=== PATIENT | female | born 1950 | race Two or more races ===

== ENCOUNTER 2023-12-22 18:56 | Emergency (ER) | payer MEDICAID ==
[~2023-12-22] VITALS: Ht 165.1 cm; Wt 59.1 kg
[2023-12-22 18:58] VITALS: TEMP 98.8
[2023-12-22 20:25] LABS: BASOPHILS % (AUTO) 0.4 % (0.0-2.0); EOSINOPHILS % (AUTO) 2.9 % (1.0-6.0); HEMATOCRIT 47.5 % (36-46); HEMOGLOBIN 15.9 g/dL (12.0-16.0); LYMPHOCYTES # (AUTO) 1.7 K/uL (1.0-4.8); LYMPHOCYTES % (AUTO) 23.1 % (22.0-44.0); MEAN CORPUSCULAR HEMOGLOBIN 28.6 pg (26.0-34.0); MEAN CORPUSCULAR HGB CONC 33.6 G/dL (31.0-37.0); MEAN CORPUSCULAR VOLUME 85 fL (80-100); MONOCYTES # (AUTO) 0.7 K/uL (0.1-1.0); MONOCYTES % (AUTO) 9.2 % (2.0-9.0); NEUTROPHILS # (AUTO) 4.8 K/uL (1.8-7.7); NEUTROPHILS % (AUTO) 64.4 % (40.0-70.0); PLATELET COUNT (AUTO) 259 K/uL (150-450); RED BLOOD CELL COUNT(AUTO) 5.58 MIL/uL (4.00-5.20); RED CELL DISTRIBUTION WIDTH 13.2 % (11.5-14.5); WHITE BLOOD COUNT (AUTO) 7.4 K/uL (4.5-11.0)
[2023-12-22 20:33] LABS: CREATININE 1.04 mg/dL (0.60-1.30); POTASSIUM 3.7 mmol/L (3.5-5.1)
[2023-12-22 20:40] LABS: ALBUMIN 3.4 g/dL (3.4-5.0); BILIRUBIN,TOTAL 0.3 mg/dL (0.1-1.0)
[2023-12-22 20:41] LABS: TROPONIN I-HIGH SENSITIVITY 6 ng/L (<51)
[2023-12-22] MEDS: ACETAMINOPHEN 500 MG TABLET PO ONE (20:44)
[2023-12-22] MEDS: LIDOCAINE 5% TRANSDERMAL PATCH TD ONE (20:45)
[2023-12-22] MEDS: MORPHINE SULFATE 2 MG/ML SYRINGE IVP ONE (20:46)
[2023-12-22] MEDS: HydrALAZINE HCL 20 MG/ML VIAL IVP ONE (20:47)
[2023-12-22 21:24] VITALS: BP 174/74; PULSE 85; RESP 16
[2023-12-22] MEDS ORDERED: LIDO700A15 TP (21:41)
[2023-12-22] MEDS ORDERED: ACET-2247 PO (21:41)
== END 2023-12-22 22:36 | disposition home or self-care (01) ==
LOC: EMS 18:57
DX: T14.8XXA Other injury of unspecified body region, initial encounter (principal); E11.9 Type 2 diabetes mellitus without complications; X58.XXXA Exposure to other specified factors, initial encounter; Y93.89 Activity, other specified; Y92.89 Other specified places as the place of occurrence of the external cause; Y99.8 Other external cause status
CPT/HCPCS: 99285; 96374; 71045; 96375; 80053; 82550; 83880; 84484; 85025; 36415; 71100; 93005; G0238; J0360; J2270

== ENCOUNTER 2024-01-25 17:22 | Emergency (ER) | payer MEDICAID ==
[~2024-01-25] VITALS: Ht 157.5 cm; Wt 63.6 kg
[~2024-01-25 17:22] MED LIST: ACET-2247 PO; LIDO700A15 TP
[2024-01-25 17:47] VITALS: TEMP 98.4
[2024-01-25] MEDS ORDERED: LOSA100T59 PO (18:58)
[2024-01-25] MEDS: BACITRACIN 0.9 GM PACKET OINTMENT TP ONE (19:16)
[2024-01-25] MEDS: CEPHALEXIN MONOHYDRATE 500 MG CAPSULE PO ONE (19:16)
[2024-01-25] MEDS ORDERED: CEPH-558 PO (19:31)
[2024-01-25 19:55] VITALS: BP 161/79; PULSE 75; RESP 18
== END 2024-01-25 20:15 | disposition home or self-care (01) ==
LOC: EMS 17:24
DX: L03.011 Cellulitis of right finger (principal); E11.9 Type 2 diabetes mellitus without complications; I10 Essential (primary) hypertension
CPT/HCPCS: 10060; 82962; 99283

== ENCOUNTER 2024-01-31 17:42 | Emergency (ER) | payer MEDICAID ==
[~2024-01-31] VITALS: Ht 152.4 cm; Wt 58.0 kg
[~2024-01-31 17:42] MED LIST changes: +CEPH-558 PO; +LOSA100T59 PO
[2024-01-31] MEDS ORDERED: CEPH500C2 PO (17:50)
[2024-01-31 17:51] VITALS: TEMP 98
[2024-01-31] MEDS: SODIUM CHLORIDE 0.9% 500 ML IV ONE (21:35)
[2024-01-31 21:45] LABS: BASOPHILS % (AUTO) 0.5 % (0.0-2.0); EOSINOPHILS % (AUTO) 2.4 % (1.0-6.0); HEMATOCRIT 42.7 % (36-46); HEMOGLOBIN 14.1 g/dL (12.0-16.0); LYMPHOCYTES # (AUTO) 2.2 K/uL (1.0-4.8); LYMPHOCYTES % (AUTO) 26.6 % (22.0-44.0); MEAN CORPUSCULAR HEMOGLOBIN 28.1 pg (26.0-34.0); MEAN CORPUSCULAR HGB CONC 33.1 G/dL (31.0-37.0); MEAN CORPUSCULAR VOLUME 85 fL (80-100); MONOCYTES # (AUTO) 0.8 K/uL (0.1-1.0); MONOCYTES % (AUTO) 9.5 % (2.0-9.0); NEUTROPHILS # (AUTO) 5.1 K/uL (1.8-7.7); PLATELET COUNT (AUTO) 249 K/uL (150-450); RED BLOOD CELL COUNT(AUTO) 5.02 MIL/uL (4.00-5.20); RED CELL DISTRIBUTION WIDTH 13.4 % (11.5-14.5); WHITE BLOOD COUNT (AUTO) 8.4 K/uL (4.5-11.0)
[2024-01-31 21:47] LABS: ERYTHROCYTE SEDIMENTATION RATE 35 MM/HR (0-30)
[2024-01-31 21:51] LABS: ANION GAP 5 mmol/L (8-16); CALCIUM, TOTAL 9.1 mg/dL (8.8-10.5); CARBON DIOXIDE 30 mmol/L (22-29); CHLORIDE 100 mmol/L (98-107); CREATININE 0.79 mg/dL (0.60-1.30); GLOMERULAR FILTR. RATE CALC > 60 mL/min (>60); GLUCOSE,RANDOM 267 mg/dL (70-110); POTASSIUM 4.2 mmol/L (3.5-5.1); SODIUM SERUM 135 mmol/L (136-145); UREA NITROGEN, BLOOD 19 mg/dL (7-18)
[2024-01-31 21:54] LABS: C-REACTIVE PROTEIN QUANT 0.13 mg/dL (0.00-0.30)
[2024-01-31 23:00] VITALS: BP 159/62; PULSE 70; RESP 16
== END 2024-01-31 23:10 | disposition home or self-care (01) ==
LOC: EMS 17:42
DX: L03.011 Cellulitis of right finger (principal); E11.9 Type 2 diabetes mellitus without complications; I10 Essential (primary) hypertension
CPT/HCPCS: 99284; 96360; 80048; 85025; 85651; 86140; 36415; 73140; J7040

== ENCOUNTER 2024-05-17 10:55 | Emergency (ER) | payer MEDICAID, OTHER ==
[~2024-05-17] VITALS: Ht 162.6 cm; Wt 63.6 kg
[~2024-05-17 10:55] MED LIST changes: -ACET-2247 PO; -CEPH-558 PO; +CEPH500C2 PO; -LIDO700A15 TP
[2024-05-17 11:00] VITALS: TEMP 98.2
[2024-05-17 12:43] LABS: BASOPHILS % (AUTO) 0.3 % (0.0-2.0); HEMATOCRIT 43.2 % (36-46); HEMOGLOBIN 14.2 g/dL (12.0-16.0); LYMPHOCYTES # (AUTO) 1.4 K/uL (1.0-4.8); LYMPHOCYTES % (AUTO) 12.9 % (22.0-44.0); MEAN CORPUSCULAR HEMOGLOBIN 28.3 pg (26.0-34.0); MEAN CORPUSCULAR HGB CONC 32.8 G/dL (31.0-37.0); MEAN CORPUSCULAR VOLUME 86 fL (80-100); MONOCYTES # (AUTO) 0.5 K/uL (0.1-1.0); MONOCYTES % (AUTO) 5.2 % (2.0-9.0); NEUTROPHILS # (AUTO) 8.4 K/uL (1.8-7.7); NEUTROPHILS % (AUTO) 80.6 % (40.0-70.0); PLATELET COUNT (AUTO) 248 K/uL (150-450); RED CELL DISTRIBUTION WIDTH 13.8 % (11.5-14.5); WHITE BLOOD COUNT (AUTO) 10.5 K/uL (4.5-11.0)
[2024-05-17 12:54] LABS: PROTHROMBIN TIME 10.6 SEC (9.4-11.6)
[2024-05-17 13:05] LABS: TROPONIN I-HIGH SENSITIVITY 7 ng/L (<51)
[2024-05-17 13:06] LABS: CALCIUM, TOTAL 8.7 mg/dL (8.8-10.5); CREATININE 0.95 mg/dL (0.60-1.30); POTASSIUM 3.9 mmol/L (3.5-5.1)
[2024-05-17 13:29] LABS: ALBUMIN 3.6 g/dL (3.4-5.0); BILIRUBIN,TOTAL 0.4 mg/dL (0.1-1.0); TOTAL PROTEIN, SERUM 7.5 g/dL (6.4-8.2)
[2024-05-17 14:56] LABS: APPEARANCE,URINE CLEAR (CLEAR); BILIRUBIN,URINE NEGATIVE (NEGATIVE); COLOR,URINE COLORLESS (YELLOW); GLUCOSE, URINE (UA) >=1000 mg/dL (NEGATIVE); KETONES,URINE NEGATIVE (NEGATIVE); LEUKOCYTE ESTERASE ,URINE NEGATIVE (NEGATIVE); NITRATE,URINE NEGATIVE (NEGATIVE); OCCULT BLOOD,URINE NEGATIVE (NEGATIVE); PH,URINE 5.5 (5.0-8.0); PROTEIN,URINE NEGATIVE (NEGATIVE); UROBILINOGEN,URINE <=1.0 mg/dL (<=1.0)
[2024-05-17 15:20] LABS: BACTERIA,URINE None Seen /HPF (None Seen); RBC,URINE None Seen /HPF (0-2); SQUAMOUS EPITHELIAL CELL,UR Rare /LPF (None Seen); WBC,URINE None Seen /HPF (0-5)
[2024-05-17 16:20] VITALS: BP 128/67; PULSE 72; RESP 18; O2SAT 98
== END 2024-05-17 16:45 | disposition home or self-care (01) ==
LOC: EMS 10:55
DX: R07.9 Chest pain, unspecified (principal); I10 Essential (primary) hypertension; R42 Dizziness and giddiness; E11.65 Type 2 diabetes mellitus with hyperglycemia
CPT/HCPCS: 71045; 80053; 81001; 82550; 83880; 84484; 85025; 85610; 85730; 93005; 99285; 36415-L1; 36415-TC

== ENCOUNTER 2025-03-08 23:45 | Emergency (ER) | payer OTHER ==
[~2025-03-08] VITALS: Ht 157.5 cm; Wt 52.3 kg
[~2025-03-08 23:45] MED LIST changes: -CEPH500C2 PO
[2025-03-08 23:53] VITALS: TEMP 97.5
[2025-03-09 00:38] LABS: PLATELET COUNT (AUTO) 202 K/uL (150-450); RED BLOOD CELL COUNT(AUTO) 4.82 MIL/uL (4.00-5.20); RED CELL DISTRIBUTION WIDTH 13.8 % (11.5-14.5); WHITE BLOOD COUNT (AUTO) 6.6 K/uL (4.5-11.0)
[2025-03-09 00:41] LABS: CALCIUM, TOTAL 8.9 mg/dL (8.8-10.5); CREATININE 0.84 mg/dL (0.60-1.30); GLOMERULAR FILTR. RATE CALC > 60 mL/min (>60); GLUCOSE,RANDOM 124 mg/dL (70-110); SODIUM SERUM 139 mmol/L (136-145); UREA NITROGEN, BLOOD 24 mg/dL (7-18)
[2025-03-09 00:50] LABS: TROPONIN I-HIGH SENSITIVITY 6 ng/L (<51)
[2025-03-09 01:13] VITALS: BP 163/96; PULSE 83; RESP 14; O2SAT 99
[2025-03-09] MEDS ORDERED: AMLO-257 PO (11:12)
[2025-03-09] MEDS ORDERED: SITA100 PO (15:12)
[2025-03-09] MEDS ORDERED: EMPA10TA3 PO (15:12)
[2025-03-09] MEDS ORDERED: CLOT15CR23 TP (16:02)
[2025-03-09] MEDS ORDERED: INSLAN SQ (16:02)
== END 2025-03-09 01:18 | disposition home or self-care (01) ==
LOC: EMS 23:45
DX: I10 Essential (primary) hypertension (principal); E11.9 Type 2 diabetes mellitus without complications; R51.9 Headache, unspecified; H53.8 Other visual disturbances; Z79.899 Other long term (current) drug therapy
CPT/HCPCS: 80048; 82962; 83735; 84484; 85025; 93005; 99284